=== PATIENT | male | born 1935 | race Caucasian/White ===

== ENCOUNTER 2019-07-14 12:22 | Emergency (ER) | payer MEDICARE, BC ==
--- NOTE | 2019-07-14 13:45 | EDM.PDOC ---
ED HPI GENERAL MEDICAL PROBLEM - General Chief Complaint: Fever Stated Complaint: FEVER,CONGESTION Time Seen by Provider: 07/14/19 13:30 Source of Information: Reports: Patient, Family History Limitations: Reports: No Limitations - History of Present Illness INITIAL COMMENTS - FREE TEXT/NARRATIVE: 83-year-old male with chronic postnasal drip, started ipratropium nasal spray 5 days ago and over the last 2-3 days has had a sore throat. He also ran a low- grade fever so the assisted living facility felt he should be checked. He arrived with his daughter. He has a sore throat when he swallows but no other symptoms, does not feel like he is short of breath, fevers, no cough, no nausea vomiting but his nasal congestion is better. He is afebrile at this time. Onset: Gradual Duration: Day(s): (2 days) Associated Symptoms: Reports: Fever/Chills. Denies: Cough, Headaches, Loss of Appetite, Malaise, Shortness of Breath - Related Data Allergies Allergy/AdvReac Type Severity Reaction Status Date / Time No Known Allergies Allergy Verified 07/14/19 13:07 Home Meds: Home Meds Aspirin [Children's Aspirin] 81 mg PO DAILY 12/12/13 [History] Dutasteride [Avodart] 0.5 mg PO DAILY 12/12/13 [History] Nitroglycerin [Nitrostat] 0.4 mg SL ASDIRECTED PRN 12/12/13 [History] Calcium Carbonate [Calcium] 600 mg PO DAILY 07/14/19 [History] Donepezil [Aricept] 5 mg PO DAILY 07/14/19 [History] FLUoxetine [PROzac] 20 mg PO DAILY 07/14/19 [History] Ipratropium [Atrovent 0.06% Nasal [place]] 2 spray TOP TID 07/14/19 [History] Mirtazapine 15 mg PO DAILY 07/14/19 [History] Omeprazole 20 mg PO DAILY 07/14/19 [History] Past Medical History HEENT History: Reports: Cataract, Other (See Below) Other HEENT History: post nasal drip Cardiovascular History: Reports: Afib, Bypass, CAD, High Cholesterol, [place] Other Respiratory History: RYAN was on c-pap Gastrointestinal History: Reports: Cholelithiasis Genitourinary History: Reports: BPH Neurological History: Reports: Alzheimers Disease Psychiatric History: Reports: Anxiety, PTSD, Other (See Below) Other Psychiatric History: dysthymic disorder Endocrine/Metabolic History: Reports: Hyperparathyroidism Dermatologic History: Reports: Other (See Below) Other Dermatologic History: actinic keratosis - Past Surgical History HEENT Surgical History: Reports: Cataract Surgery Cardiovascular Surgical History: Reports: Coronary Artery Bypass GI Surgical History: Reports: Cholecystectomy Social & Family History - Tobacco Use Smoking Status *Q: Unknown Ever Smoked ED ROS ENT - Review of Systems Review Of Systems: See Below Constitutional: Denies: Fever, Chills HEENT: Reports: Rhinitis, Throat Pain Respiratory: Denies: Shortness of Breath, Cough Cardiovascular: Denies: Chest Pain GI/Abdominal: Denies: Nausea, Vomiting Skin: Denies: Rash Neurological: Denies: Headache ED EXAM, ENT - Physical Exam Exam: See Below Exam Limited By: No Limitations General Appearance: Alert, No Apparent Distress Ears: Normal TMs Mouth/Throat: Normal Inspection, Other (No significant pharyngeal erythema or exudate) Head: Atraumatic Neck: No: Lymphadenopathy (R), Lymphadenopathy (L) Respiratory/Chest: No Respiratory Distress, Lungs Clear Neurological: Alert, Oriented Skin: Warm, Dry Course - Vital Signs Last Recorded V/S: Last Vital Signs Temp 96.3 F 07/14/19 13:05 Pulse 78 07/14/19 13:05 Resp 16 07/14/19 13:05 BP 133/66 07/14/19 13:05 Pulse Ox 96 07/14/19 13:05 - Orders/Labs/Meds Orders: Active Orders 24 hr Category Date Time Status CULTURE STREP A CONFIRMATION [RM] Routine Lab 07/14/19 13:43 Results STREP SCRN A RAPID W CULT CONF [RM] Routine Lab 07/14/19 13:43 Results - Re-Assessments/Exams Free Text/Narrative Re-Assessment/Exam: 07/14/19 13:45 A rapid strep was obtained 07/14/19 14:10 Strep is negative. Patient will consider holding his nasal spray for a couple of days while his cold clears, then reinitiate therapy but I also encouraged to just continue with the spray and if his symptoms resolve then his spray has not contributing to his symptoms. Departure - Departure Time of Disposition: 14:35 Disposition: Home, Self-Care 01 Clinical Impression: Acute viral pharyngitis - Discharge Information Instructions: Pharyngitis Referrals: Jesu Fritz NP [Primary Care Provider] - Forms: ED Department Discharge Care Plan Goals: Rest, fluids, as needed ibuprofen may be beneficial. Consider holding nasal spray until cold clears, and return anytime if worsening or concerns. - My Orders Last 24 Hours: My Active Orders 07/14/19 13:43 CULTURE STREP A CONFIRMATION [RM] Routine STREP SCRN A RAPID W CULT CONF [RM] Routine - Assessment/Plan Last 24 Hours: My Active Orders 07/14/19 13:43 CULTURE STREP A CONFIRMATION [RM] Routine STREP SCRN A RAPID W CULT CONF [RM] Routine
== END 2019-07-14 14:35 | disposition home or self-care (01) ==
LOC: JP.ED 12:22
DX: J02.8 Acute pharyngitis due to other specified organisms (principal); B97.89 Other viral agents as the cause of diseases classified elsewhere; E78.00 Pure hypercholesterolemia, unspecified; I48.91 Unspecified atrial fibrillation; I25.10 Atherosclerotic heart disease of native coronary artery without angina pectoris; I25.2 Old myocardial infarction; F41.9 Anxiety disorder, unspecified; N40.0 Benign prostatic hyperplasia without lower urinary tract symptoms; G30.9 Alzheimer's disease, unspecified; F02.80 Dementia in other diseases classified elsewhere, unspecified severity, without behavioral disturbance, psychotic disturbance, mood disturbance, and anxiety; Z79.82 Long term (current) use of aspirin; Z79.899 Other long term (current) drug therapy
CPT/HCPCS: 87081; 87880-QW; 99283

== ENCOUNTER 2019-07-17 02:12 | Emergency (ER) | payer MEDICARE, BC ==
--- NOTE | 2019-07-17 03:24 | EDM.PDOC ---
ED HPI GENERAL MEDICAL PROBLEM - General Chief Complaint: General Stated Complaint: NOT FEELING WELL Time Seen by Provider: 07/17/19 03:00 Source of Information: Reports: Patient - History of Present Illness INITIAL COMMENTS - FREE TEXT/NARRATIVE: 84 yo presents with concerns of runny nose, cough, watery eyes, sore throat. Symptoms started 2-3 days ago. Started with sore throat, seen in ED for this, strep negative. Since this time symptoms progressed. Now having difficulty sleeping due to cough, prompting presentation to ED tonight. No fever No SOB. No chest pain. No neck stiffness or soreness. - Related Data Allergies Allergy/AdvReac Type Severity Reaction Status Date / Time No Known Allergies Allergy Verified 07/17/19 02:26 Home Meds: Home Meds Aspirin [Children's Aspirin] 81 mg PO DAILY 12/12/13 [History] Dutasteride [Avodart] 0.5 mg PO DAILY 12/12/13 [History] Nitroglycerin [Nitrostat] 0.4 mg SL ASDIRECTED PRN 12/12/13 [History] Calcium Carbonate [Calcium] 600 mg PO DAILY 07/14/19 [History] Donepezil [Aricept] 5 mg PO DAILY 07/14/19 [History] FLUoxetine [PROzac] 20 mg PO DAILY 07/14/19 [History] Ipratropium [Atrovent 0.06% Nasal [place]] 2 spray TOP TID 07/14/19 [History] Mirtazapine 15 mg PO DAILY 07/14/19 [History] Omeprazole 20 mg PO DAILY 07/14/19 [History] Past Medical History HEENT History: Reports: Cataract, Other (See Below) Other HEENT History: post nasal drip Cardiovascular History: Reports: Afib, Bypass, CAD, High Cholesterol, [place] Other Respiratory History: RYAN was on c-pap Gastrointestinal History: Reports: Cholelithiasis Genitourinary History: Reports: BPH Neurological History: Reports: Alzheimers Disease Psychiatric History: Reports: Anxiety, PTSD, Other (See Below) Other Psychiatric History: dysthymic disorder Endocrine/Metabolic History: Reports: Hyperparathyroidism Dermatologic History: Reports: Other (See Below) Other Dermatologic History: actinic keratosis - Past Surgical History HEENT Surgical History: Reports: Cataract Surgery Cardiovascular Surgical History: Reports: Coronary Artery Bypass GI Surgical History: Reports: Cholecystectomy Social & Family History - Tobacco Use Smoking Status *Q: Never Smoker - Recreational Drug Use Recreational Drug Use: No ED ROS GENERAL - Review of Systems Review Of Systems: See Below Constitutional: Reports: No Symptoms HEENT: Reports: Rhinitis, Throat Pain Respiratory: Reports: Cough Cardiovascular: Reports: No Symptoms. Denies: Chest Pain Endocrine: Reports: No Symptoms GI/Abdominal: Reports: No Symptoms : Reports: No Symptoms Musculoskeletal: Reports: No Symptoms Skin: Reports: No Symptoms Neurological: Reports: No Symptoms Psychiatric: Reports: No Symptoms Hematologic/Lymphatic: Reports: No Symptoms Immunologic: Reports: No Symptoms ED EXAM, GENERAL - Physical Exam Exam: See Below Exam Limited By: No Limitations General Appearance: Alert, No Apparent Distress Ears: Normal External Exam Nose: Normal Inspection Throat/Mouth: Inflammation, Other (diffuse oropharyngeal erythema) Head: Atraumatic, Normocephalic Neck: Normal Inspection, Supple, Non-Tender, Full Range of Motion Respiratory/Chest: No Respiratory Distress, Lungs Clear Cardiovascular: Regular Rate, Rhythm GI/Abdominal: Soft, Non-Tender, No Distention Back Exam: Normal Inspection Extremities: Normal Inspection Neurological: Alert, Oriented Psychiatric: Normal Affect, Normal Mood Skin Exam: Warm, Dry Course - Vital Signs Last Recorded V/S: Last Vital Signs Temp 37.1 C 07/17/19 02:35 Pulse 83 07/17/19 02:35 Resp 18 07/17/19 02:35 BP 128/56 L 07/17/19 02:35 Pulse Ox 92 L 07/17/19 02:35 - Re-Assessments/Exams Free Text/Narrative Re-Assessment/Exam: 84 yo presents with constellation of symptoms consistent with viral URI. Exam benign with normal vitals. He is 2-3 days into this. Discussed may take 5-7 days to resolve. Suggested OTC med such as sudafed. Encouraged to follow up with PCP 07/17/19 03:31 Departure - Departure Time of Disposition: 03:22 Disposition: Home, Self-Care 01 Clinical Impression: URI (upper respiratory infection) Qualifiers: URI type: acute nasopharyngitis (common cold) Qualified Code(s): J00 - Acute nasopharyngitis [common cold] - Discharge Information Referrals: PCP,None [Primary Care Provider] - Forms: ED Department Discharge Additional Instructions: You do a trial of sudafed, a cold medicine, which is available over the counter for your symptoms. They are likely caused by a virus, and will need 5-7 days to start getting better. Please make a follow up with your primary doctor.
== END 2019-07-17 03:45 | disposition home or self-care (01) ==
LOC: JP.ED 02:12
DX: J00 Acute nasopharyngitis [common cold] (principal); E78.00 Pure hypercholesterolemia, unspecified; F41.9 Anxiety disorder, unspecified; E21.3 Hyperparathyroidism, unspecified; Z79.82 Long term (current) use of aspirin; Z79.899 Other long term (current) drug therapy
CPT/HCPCS: 99282

== ENCOUNTER 2020-05-15 12:51 | Emergency (ER) | payer BC, MEDICARE ==
--- NOTE | 2020-05-15 14:17 | EDM.PDOC ---
ED HPI GENERAL MEDICAL PROBLEM - General Chief Complaint: General Stated Complaint: HEADACHE, DIZZINESS Time Seen by Provider: 05/15/20 13:45 Source of Information: Reports: Patient History Limitations: Reports: No Limitations - History of Present Illness INITIAL COMMENTS - FREE TEXT/NARRATIVE: 84-year-old male arrives because of concerns of worsening of his malaise, morning headaches and intermittent nausea. He is convinced that there are medication side effects, he says he recently had his Depakote increased and they are going to try to decrease his Prozac. He has been trying to get a hold of his psychiatrist and is unable. No fevers or chills but there has been weight loss. Very nonspecific about his symptoms. Tends to feel worse in the morning, as the day goes on he feels better. Nothing in particular is different today than it has been for the last 1 to 2 weeks. Onset: Unknown/Unsure Duration: Week(s): Associated Symptoms: Reports: Headaches, Loss of Appetite, Malaise, Nausea/Vomiting. Denies: Confusion, Chest Pain, Cough, Diaphoresis, Shortness of Breath - Related Data Allergies Allergy/AdvReac Type Severity Reaction Status Date / Time No Known Allergies Allergy Verified 05/15/20 13:06 Home Meds: Home Meds Aspirin [Children's Aspirin] 81 mg PO DAILY 12/12/13 [History] Nitroglycerin [Nitrostat] 0.4 mg SL ASDIRECTED PRN 12/12/13 [History] Calcium Carbonate [Calcium] 600 mg PO DAILY 07/14/19 [History] FLUoxetine [PROzac] 20 mg PO DAILY 07/14/19 [History] Ipratropium [Atrovent 0.06% Nasal [place]] 2 spray TOP TID 07/14/19 [History] Omeprazole 20 mg PO DAILY 07/14/19 [History] Divalproex Sodium [Depakote ER] 250 mg PO BID 05/15/20 [History] LORazepam [Lorazepam] 0.5 mg PO BID 05/15/20 [History] Levocetirizine Dihydrochloride 5 mg PO BEDTIME 05/15/20 [History] Past Medical History HEENT History: Reports: Cataract, Other (See Below) Other HEENT History: post nasal drip Cardiovascular History: Reports: Afib, Bypass, CAD, High Cholesterol, [place] Other Respiratory History: RYAN was on c-pap Gastrointestinal History: Reports: Cholelithiasis Genitourinary History: Reports: BPH Neurological History: Reports: Alzheimers Disease Psychiatric History: Reports: Anxiety, PTSD, Other (See Below) Other Psychiatric History: dysthymic disorder Endocrine/Metabolic History: Reports: Hyperparathyroidism Dermatologic History: Reports: Other (See Below) Other Dermatologic History: actinic keratosis - Past Surgical History HEENT Surgical History: Reports: Cataract Surgery Cardiovascular Surgical History: Reports: Coronary Artery Bypass GI Surgical History: Reports: Cholecystectomy Social & Family History - Tobacco Use Smoking Status *Q: Never Smoker ED ROS GENERAL - Review of Systems Review Of Systems: See Below Constitutional: Reports: Malaise, Decreased Appetite. Denies: Fever, Chills HEENT: Reports: No Symptoms. Denies: Vision Change Respiratory: Denies: Shortness of Breath Cardiovascular: Denies: Chest Pain GI/Abdominal: Reports: Nausea. Denies: Abdominal Pain Skin: Denies: Rash Neurological: Reports: Headache, Weakness Psychiatric: Reports: Anxiety ED EXAM, GENERAL - Physical Exam Exam: See Below Exam Limited By: No Limitations General Appearance: Alert, No Apparent Distress Eye Exam: Bilateral Eye: Normal Inspection Throat/Mouth: Normal Inspection Head: Atraumatic Neck: Supple, Non-Tender Respiratory/Chest: Lungs Clear Cardiovascular: Regular Rate, Rhythm. No: Tachycardia, Extra Beats Neurological: Alert, Oriented, No Motor/Sensory Deficits Psychiatric: Anxious Skin Exam: Warm, Dry Course - Vital Signs Last Recorded V/S: Last Vital Signs Temp 96.9 F 05/15/20 13:34 Pulse 71 05/15/20 13:34 Resp 20 05/15/20 13:34 BP 130/61 05/15/20 13:34 Pulse Ox 96 05/15/20 13:34 - Orders/Labs/Meds Labs: Laboratory Tests 05/15/20 05/15/20 Range/Units 13:43 13:43 WBC 8.2 (4.5-11.0) K/uL RBC 5.10 (4.30-5.90) M/uL Hgb 14.5 (12.0-15.0) g/dL Hct 44.0 (40.0-54.0) % MCV 86 (80-98) fL MCH 28 (27-31) pg MCHC 33 (32-36) % Plt Count 253 (150-400) K/uL Neut % (Auto) 57 (36-66) % Lymph % (Auto) 31 (24-44) % [place] % (Auto) 10 H (2-6) % Eos % (Auto) 2 (2-4) % Baso % (Auto) 0 (0-1) % Sodium 136 L (140-148) mmol/L Potassium 4.9 (3.6-5.2) mmol/L Chloride 102 (100-108) mmol/L Carbon Dioxide 27 (21-32) mmol/L Anion Gap 11.9 (5.0-14.0) mmol/L BUN 19 H (7-18) mg/dL Creatinine 1.3 (0.8-1.3) mg/dL Est Cr Clr Drug Dosing 43.05 mL/min Estimated GFR (MDRD) 53 L (>60) Glucose 112 H (74-106) mg/dL Calcium 8.7 D (8.5-10.1) mg/dL Total Bilirubin 0.4 (0.2-1.0) mg/dL AST 32 (15-37) U/L ALT 49 (12-78) U/L Alkaline Phosphatase 56 (46-116) U/L Total Protein 7.7 (6.4-8.2) g/dL Albumin 3.2 L (3.4-5.0) g/dL Globulin 4.5 H (2.3-3.5) g/dL Albumin/Globulin Ratio 0.7 L (1.2-2.2) - Re-Assessments/Exams Free Text/Narrative Re-Assessment/Exam: 05/15/20 14:[address] was negative, BMP and CBC were reassuring. While awaiting his lab results, his assisted living facility called and explained that he is not taking his medications appropriately or consistently and is refusing to let them set up his medications. I told the patient I am uncomfortable making any medication recommendations until he is taking his medications appropriately and encouraged him to allow them to set up his medicines. I also discussed this case with his primary provider Jesu Fritz who will recheck with him next week. Departure - Departure Time of Disposition: 14:29 Disposition: Home, Self-Care 01 Clinical Impression: Recurrent headache - Discharge Information Instructions: General Headache Without Cause Referrals: PCP,None [Primary Care Provider] - Forms: ED Department Discharge Care Plan Goals: Continue your medications as prescribed and make adjustments if side effects are persistent. Recheck with Jesu Fritz to discuss medication and possible side effects. Sepsis Event Note (ED) - Evaluation Sepsis Screening Result: No Definite Risk - Focused Exam Vital Signs: Vital Signs Temp Pulse Resp BP Pulse Ox 05/15/20 13:34 96.9 F 71 20 130/61 96
--- NOTE | 2020-05-15 14:26 | CT ---
Head wo Cont CLINICAL HISTORY: Headaches and vomiting COMPARISON: 2013 TECHNIQUE: Transverse scans were obtained from the base of the skull through the vertex without IV contrast on a multislice, multidetector CT scanner. Auto dosage reduction and iterative reconstruction techniques employed. FINDINGS: No focal abnormal parenchymal density is identified. There is no mass effect, hemorrhage, or extraaxial collection. The basal cisterns and sulci over the convexities are prominent. The ventricles are prominent. There is some scattered periventricular lucency IMPRESSION: Moderate age-related atrophy. Chronic ischemic microvascular changes No acute intracranial process
== END 2020-05-15 14:29 | disposition home or self-care (01) ==
LOC: JP.ED 12:51
DX: R51 Headache (principal); I48.91 Unspecified atrial fibrillation; I25.810 Atherosclerosis of coronary artery bypass graft(s) without angina pectoris; E78.00 Pure hypercholesterolemia, unspecified; I25.2 Old myocardial infarction; G30.9 Alzheimer's disease, unspecified; F41.9 Anxiety disorder, unspecified; E21.3 Hyperparathyroidism, unspecified; Z90.89 Acquired absence of other organs; Z79.82 Long term (current) use of aspirin; Z79.899 Other long term (current) drug therapy
CPT/HCPCS: 36415; 70450; 70450-26; 80053; 85025; 99282; 99284-25

== ENCOUNTER 2021-08-07 12:22 | Emergency (ER) | payer MEDICARE ==
--- NOTE | 2021-08-07 13:07 | EDM.PDOC ---
ED HPI GENERAL MEDICAL PROBLEM - General Chief Complaint: Syncope Stated Complaint: SYNCOPE VIA [facility] Time Seen by Provider: 08/07/21 12:45 Source of Information: Reports: Patient, EMS History Limitations: Reports: No Limitations - History of Present Illness INITIAL COMMENTS - FREE TEXT/NARRATIVE: 86-year-old male who has been having trouble with recurring syncopal episodes over the past several months, and persistent dizziness, was sitting in scientologist today when he noticed that the regional extension service specialist was getting "fuzzy". He then got real lightheaded and had a syncopal episode where he laid down on the person next to him. EMS was called, when they arrived he was awake. He had no palpitations or chest pain, no shortness of breath, no headache. This is very similar to his numerous previous dizzy spells. On further questioning they have been working him up for that, including a Holter monitor in the recent past. On arrival he was in normal sinus rhythm with normal blood pressure. He is still complaining of "dizziness". Orthostatic blood pressures lying and sitting were stable. Onset: Sudden (This latest episode came on fairly suddenly) Worsens with: Reports: Other (Standing is worse) Associated Symptoms: Reports: Other (Persistent dizziness, very hard of hearing) - Related Data Allergies Allergy/AdvReac Type Severity Reaction Status Date / Time No Known Allergies Allergy Verified 08/07/21 12:33 Home Meds: Home Meds Aspirin [Children's Aspirin] 81 mg PO DAILY 12/12/13 [History] Nitroglycerin [Nitrostat] 0.4 mg SL ASDIRECTED PRN 12/12/13 [History] Calcium Carbonate [Calcium] 600 mg PO DAILY 07/14/19 [History] FLUoxetine [PROzac] 20 mg PO DAILY 07/14/19 [History] Ipratropium [Atrovent 0.06% Nasal [place]] 2 spray TOP TID 07/14/19 [History] Omeprazole 20 mg PO DAILY 07/14/19 [History] Divalproex Sodium [Depakote ER] 250 mg PO BID 05/15/20 [History] LORazepam [Lorazepam] 0.5 mg PO BID 05/15/20 [History] Levocetirizine Dihydrochloride 5 mg PO BEDTIME 05/15/20 [History] Past Medical History HEENT History: Reports: Cataract, Other (See Below) Other HEENT History: post nasal drip Cardiovascular History: Reports: Afib, Bypass, CAD, High Cholesterol, [place] Other Respiratory History: RYAN was on c-pap Gastrointestinal History: Reports: Cholelithiasis Genitourinary History: Reports: BPH Neurological History: Reports: Alzheimers Disease Psychiatric History: Reports: Anxiety, PTSD, Other (See Below) Other Psychiatric History: dysthymic disorder Endocrine/Metabolic History: Reports: Hyperparathyroidism Dermatologic History: Reports: Other (See Below) Other Dermatologic History: actinic keratosis - Past Surgical History HEENT Surgical History: Reports: Cataract Surgery Cardiovascular Surgical History: Reports: Coronary Artery Bypass GI Surgical History: Reports: Cholecystectomy Social & Family History - Tobacco Use Tobacco Use Status *Q: Never Tobacco User - Caffeine Use Caffeine Use: Reports: None - Recreational Drug Use Recreational Drug Use: No ED ROS GENERAL - Review of Systems Review Of Systems: See Below Constitutional: Denies: Fever, Chills, Malaise HEENT: Denies: Hearing Loss, Vision Change Respiratory: Denies: Shortness of Breath, Cough Cardiovascular: Denies: Chest Pain GI/Abdominal: Denies: Abdominal Pain, Nausea, Vomiting : Reports: No Symptoms Musculoskeletal: Denies: Neck Pain - Physical Exam Exam: See Below Exam Limited By: No Limitations General Appearance: Alert, No Apparent Distress Eye Exam: Bilateral Eye: Normal Inspection (No nystagmus) Ears: Normal TMs Throat/Mouth: Normal Inspection Head Exam: Atraumatic Neck: Supple, Non-Tender Respiratory/Chest: No Respiratory Distress, Lungs Clear Cardiovascular: Regular Rate, Rhythm, Extra Beats (Occasional extra beats) GI/Abdominal: Soft, Non-Tender Neuro Exam (Abbreviated): Alert, Oriented, No Motor/Sensory Deficits Extremities: Normal Inspection Psychiatric: Normal Affect, Normal Mood Skin Exam: Warm, Dry Course - Vital Signs Last Recorded V/S: Last Vital Signs Temp 96.5 F L 08/07/21 12:27 Pulse 62 08/07/21 13:52 Resp 14 08/07/21 13:52 BP 124/62 08/07/21 13:52 Pulse Ox 99 08/07/21 12:37 - Orders/Labs/Meds Labs: Laboratory Tests 08/07/21 08/07/21 Range/Units 13:19 13:19 WBC 9.4 (4.5-11.0) K/uL RBC 4.93 (4.30-5.90) M/uL Hgb 13.9 (12.0-15.0) g/dL Hct 41.5 (40.0-54.0) % MCV 84 (80-98) fL MCH 28 (27-31) pg MCHC 34 (32-36) % Plt Count 279 (150-400) K/uL Neut % (Auto) 69.3 H (36-66) % Lymph % (Auto) 17.6 L (24-44) % [place] % (Auto) 10.7 H (2-6) % Eos % (Auto) 2.0 (2-4) % Baso % (Auto) 0.4 (0-1) % Sodium 135 L (140-148) mmol/L Potassium 5.3 H (3.6-5.2) mmol/L Chloride 104 (100-108) mmol/L Carbon Dioxide 24 (21-32) mmol/L Anion Gap 12.3 (5.0-14.0) mmol/L BUN 17 (7-18) mg/dL Creatinine 1.2 (0.8-1.3) mg/dL Est Cr Clr Drug Dosing 43.54 mL/min Estimated GFR (MDRD) 58 L (>60) Glucose 98 (74-106) mg/dL Calcium 8.5 (8.5-10.1) mg/dL Troponin I < 0.017 (0.000-0.056) ng/mL - Re-Assessments/Exams Free Text/Narrative Re-Assessment/Exam: 08/07/21 13:06 EKG done by EMS was reviewed and shows no acute findings compared to previous EKGs. Other than dizziness patient was asymptomatic in the emergency room. CBC, BMP and troponin were obtained. 08/07/21 14:11 Patient remained stable while in the emergency room, was reassured when labs returned normal. He claims he was on an antibiotic for 2 weeks for his "sinuses" and that seemed to help but I do not see any reason to restart antibiotics and he can talk to his primary provider about that. Departure - Departure Time of Disposition: 14:15 Disposition: Home, Self-Care 01 Clinical Impression: Dizziness Syncope Qualifiers: Syncope type: vasovagal syncope Qualified Code(s): R55 - Syncope and collapse - Discharge Information Instructions: Dizziness, [id number] Referrals: Citlaly Clemons PA-C [Primary Care Provider] - Forms: ED Department Discharge Care Plan Goals: Continue your current medications, recheck with your regular doctor about test results and your heart monitor results as well. Stay hydrated and increase acti vity as tolerated. Sepsis Event Note (ED) - Evaluation Sepsis Screening Result: No Definite Risk - Focused Exam Vital Signs: Vital Signs Temp Pulse Resp BP Pulse Ox 08/07/21 13:52 62 14 124/62 08/07/21 12:37 58 L 27 H 113/48 L 99 08/07/21 12:27 96.5 F L 60 17 111/52 L 98
== END 2021-08-07 14:25 | disposition home or self-care (01) ==
LOC: JP.ED 12:22
DX: R55 Syncope and collapse (principal); R42 Dizziness and giddiness; I48.91 Unspecified atrial fibrillation; I25.810 Atherosclerosis of coronary artery bypass graft(s) without angina pectoris; I25.2 Old myocardial infarction; G30.9 Alzheimer's disease, unspecified; F02.80 Dementia in other diseases classified elsewhere, unspecified severity, without behavioral disturbance, psychotic disturbance, mood disturbance, and anxiety; E21.3 Hyperparathyroidism, unspecified; Z79.82 Long term (current) use of aspirin; Z79.899 Other long term (current) drug therapy
CPT/HCPCS: 36415; 80048; 84484; 85025; 99284

== ENCOUNTER 2022-12-11 14:17 | Emergency (ER) | payer MEDICARE ==
[2022-12-11] MEDS ORDERED: Sodium Chloride 0.9% 10 ML Syringe FLUSH PRN (15:05)
[2022-12-11] MEDS ORDERED: Sodium Chloride 0.9% 50 ML IV ONE (15:10)
[2022-12-11] MEDS ORDERED: Sodium Chloride 0.9% 10 ML Syringe FLUSH ONE (15:10)
[2022-12-11] MEDS ORDERED: Iopamidol 612 MG/ML 100 ML Bottle IV ONE (15:10)
[2022-12-11] MEDS ORDERED: Pantoprazole 40 MG Tab.CR PO ONE (15:11)
[2022-12-11 15:39] LABS: ESTIMATED GFR 54 mL/min (>60)
[2022-12-11] MEDS ORDERED: Amoxicillin/Clavulanate K 875-125 MG Tab PO ONE (17:05)
== END 2022-12-11 17:24 | disposition home or self-care (01) ==
LOC: JP.ED 14:17
DX: K57.92 Diverticulitis of intestine, part unspecified, without perforation or abscess without bleeding (principal); I48.91 Unspecified atrial fibrillation; I25.2 Old myocardial infarction; Z87.891 Personal history of nicotine dependence; Z79.82 Long term (current) use of aspirin
CPT/HCPCS: 36415; 74177; 80053; 81001; 83605; 85025; 99284; A9270; J3490; Q9967; 99283

== ENCOUNTER 2022-12-14 08:11 | Emergency (ER) | payer MEDICARE ==
[2022-12-14] MEDS ORDERED: Sodium Chloride 0.9% 10 ML Syringe FLUSH PRN (09:17)
[2022-12-14] MEDS ORDERED: Lactated Ringers 1,000 ML IV SCH (09:30)
[2022-12-14 10:09] LABS: ESTIMATED GFR 65 mL/min (>60)
[2022-12-14 10:11] LABS: TROPONIN I HIGH SENSITIVITY 10480.1 pg/mL (<=60.3)
[2022-12-14] MEDS ORDERED: Morphine 2 MG/ML SYRINGE IVPUSH ONE (10:21)
[2022-12-14] MEDS ORDERED: Nitroglycerin 0.4 MG Tab.SL SL PRN (10:32)
[2022-12-14] MEDS ORDERED: Aspirin 81 MG Tab.Chew PO ONE (10:32)
[2022-12-14] MEDS ORDERED: Heparin Sodium 5,000 Units/ML Vial IVPUSH ONE (10:32)
[2022-12-14] MEDS ORDERED: Heparin Sodium/D5W 25,000 UNITS/500 ML BAG IV SCH (10:45)
[2022-12-14] MEDS ORDERED: Amoxicillin/Clavulanate K 875-125 MG Tab PO ONE (10:59)
[2022-12-14 11:54] LABS: CORONAVIRUS COVID-19 NAA NEGATIVE (NEGATIVE)
[2022-12-14] MEDS ORDERED: Ondansetron 4 MG/2 ML SDV IVPUSH ONE (15:39)
[2022-12-15] MEDS ORDERED: Levothyroxine 25 MCG Tab PO SCH (07:30)
[2022-12-15] MEDS ORDERED: Non-Formulary Medication 1 Each (Calcium Carbonate [Calcium] 600 MG Tablet) PO SCH (09:00)
[2022-12-15] MEDS ORDERED: Amoxicillin/Clavulanate K 875-125 MG Tab PO SCH (09:00)
[2022-12-15] MEDS ORDERED: Aspirin 81 MG Tab.Chew PO SCH (09:00)
== END 2022-12-14 16:29 ==
LOC: JP.ED 08:11
DX: I21.4 Non-ST elevation (NSTEMI) myocardial infarction (principal); I48.91 Unspecified atrial fibrillation; I25.10 Atherosclerotic heart disease of native coronary artery without angina pectoris; E78.00 Pure hypercholesterolemia, unspecified; I25.2 Old myocardial infarction; E05.90 Thyrotoxicosis, unspecified without thyrotoxic crisis or storm; Z79.82 Long term (current) use of aspirin; Z79.899 Other long term (current) drug therapy; Z95.1 Presence of aortocoronary bypass graft; Z20.822 Contact with and (suspected) exposure to COVID-19
CPT/HCPCS: 0241U; 36415; 71045; 74018; 80053; 83605; 84484; 85025; 85610; 85730; 96361; 96365; 96366; 96375; 99285; A9270; J1644; J2270; J3490; J7120

== ENCOUNTER 2023-05-09 19:56 | Emergency (ER) | payer MEDICARE ==
[2023-05-09] MEDS ORDERED: Sodium Chloride 0.9% 10 ML Syringe FLUSH PRN (20:07)
[2023-05-09 20:33] LABS: HEMATOCRIT 36.8 % (38.4-49.7); HEMOGLOBIN 12.4 g/dL (12.9-16.9); MEAN CORPUSCULAR HEMOGLOBIN 29.2 pg (31.6-35.5); MEAN CORPUSCULAR HGB CONC 33.7 g/dL (31.6-35.5); MEAN CORPUSCULAR VOLUME 86.8 fL (81.4-99.0); RED BLOOD CELL COUNT 4.24 M/uL (4.14-5.76); WHITE BLOOD CELL COUNT,WBC 8.9 K/uL (3.2-11.0)
[2023-05-09 20:57] LABS: BLOOD UREA NITROGEN,BUN 16 mg/dL (7-18); CALCIUM 8.4 mg/dL (8.5-10.1); CARBON DIOXIDE,CO2 25 mmol/L (21-32); CHLORIDE,CL 104 mmol/L (100-108); CREATININE 1.2 mg/dL (0.8-1.3); EST CRCL DRUG DOSING (CG) 41.31 mL/min; ESTIMATED GFR 59 mL/min (>60); GLUCOSE RANDOM 105 mg/dL (74-106); MAGNESIUM 2.1 mg/dL (1.8-2.4); POTASSIUM,K 4.2 mmol/L (3.6-5.2); SODIUM,NA 137 mmol/L (140-148); TROPONIN I HIGH SENSITIVITY 45.6 pg/mL (<=60.3)
[2023-05-09 21:00] LABS: ANION GAP 12.2 mmol/L (5.0-14.0); C-REACTIVE PROTEIN < 0.05 mg/dL (0.0-0.3)
== END 2023-05-09 21:44 | disposition home or self-care (01) ==
LOC: JP.ED 19:56
DX: R00.8 Other abnormalities of heart beat (principal); I48.91 Unspecified atrial fibrillation; I25.10 Atherosclerotic heart disease of native coronary artery without angina pectoris; E78.00 Pure hypercholesterolemia, unspecified; E03.9 Hypothyroidism, unspecified; Z79.82 Long term (current) use of aspirin; Z79.899 Other long term (current) drug therapy; Z95.1 Presence of aortocoronary bypass graft
CPT/HCPCS: 36415; 80048; 83735; 84484; 85027; 86140; 93005; 99285; J3490

== ENCOUNTER 2023-06-27 18:46 | Emergency (ER) | payer MEDICARE ==
[2023-06-27] MEDS ORDERED: Tranexamic Acid 1,000 MG/10 ML Vial TOP ONE (21:02)
[2023-06-27] MEDS ORDERED: Sodium Chloride 0.9% 10 ML Syringe FLUSH PRN (21:49)
[2023-06-27] MEDS ORDERED: Tranexamic Acid 1,000 MG/10 ML Vial IVPUSH ONE (21:51)
[2023-06-27 22:04] LABS: BASOPHILS ABSOLUTE AUTO 0.05 K/uL (0.00-0.10); BASOPHILS PERCENT AUTO 0.5 % (0.1-1.3); EOSINOPHILS ABSOLUTE AUTO 0.13 K/uL (0.00-0.40); EOSINOPHILS PERCENT AUTO 1.2 % (0.0-5.4); HEMATOCRIT 39.2 % (38.4-49.7); IMMATURE GRAN ABSOLUTE AUTO 0.03 K/uL (0.00-0.23); IMMATURE GRAN PERCENT AUTO 0.3 % (0.0-0.7); LYMPHOCYTES ABSOLUTE AUTO 2.82 K/uL (0.8-3.3); MEAN CORPUSCULAR HEMOGLOBIN 28.4 pg (31.6-35.5); MEAN CORPUSCULAR HGB CONC 33.2 g/dL (31.6-35.5); MEAN CORPUSCULAR VOLUME 85.8 fL (81.4-99.0); MONOCYTES ABSOLUTE AUTO 0.98 K/uL (0.20-0.90); MONOCYTES PERCENT AUTO 9.4 % (3.3-12.6); NEUTROPHILS ABSOLUTE AUTO 6.43 K/uL (1.0-7.6); NEUTROPHILS PERCENT AUTO 61.6 % (40.0-78.1); PLATELET COUNT,PLT 210 K/uL (130-375); RED BLOOD CELL COUNT 4.57 M/uL (4.14-5.76); WHITE BLOOD CELL COUNT,WBC 10.4 K/uL (3.2-11.0)
[2023-06-28] MEDS ORDERED: Tranexamic Acid 1,000 MG in Sodium Chloride 0.9% 500 ML IV ONE (03:50)
== END 2023-06-28 08:07 | disposition home or self-care (01) ==
LOC: JP.ED 18:46
DX: K91.840 Postprocedural hemorrhage of a digestive system organ or structure following a digestive system procedure (principal); I25.10 Atherosclerotic heart disease of native coronary artery without angina pectoris; Z79.899 Other long term (current) drug therapy; Z79.82 Long term (current) use of aspirin; Z87.891 Personal history of nicotine dependence
CPT/HCPCS: 36415; 85025; 99283; J3490; J7040

== ENCOUNTER 2023-12-05 18:14 | Observation (INO) | payer MEDICARE ==
[2023-12-05 18:40] LABS: BASOPHILS ABSOLUTE AUTO 0.05 K/uL (0.00-0.10); BASOPHILS PERCENT AUTO 0.5 % (0.1-1.3); HEMATOCRIT 44.5 % (38.4-49.7); HEMOGLOBIN 14.8 g/dL (12.9-16.9); IMMATURE GRAN ABSOLUTE AUTO 0.05 K/uL (0.00-0.23); IMMATURE GRAN PERCENT AUTO 0.5 % (0.0-0.7); LYMPHOCYTES ABSOLUTE AUTO 2.96 K/uL (0.8-3.3); LYMPHOCYTES PERCENT AUTO 32.2 % (11.4-47.7); MEAN CORPUSCULAR HEMOGLOBIN 28.1 pg (31.6-35.5); MEAN CORPUSCULAR HGB CONC 33.3 g/dL (31.6-35.5); MEAN CORPUSCULAR VOLUME 84.4 fL (81.4-99.0); MONOCYTES ABSOLUTE AUTO 0.94 K/uL (0.20-0.90); MONOCYTES PERCENT AUTO 10.2 % (3.3-12.6); NEUTROPHILS PERCENT AUTO 56.6 % (40.0-78.1); PLATELET COUNT,PLT 228 K/uL (130-375); RED BLOOD CELL COUNT 5.27 M/uL (4.14-5.76); WHITE BLOOD CELL COUNT,WBC 9.2 K/uL (3.2-11.0)
[2023-12-05 19:05] LABS: CALCIUM 8.7 mg/dL (8.5-10.1); CREATININE 1.2 mg/dL (0.8-1.3); EST CRCL DRUG DOSING (CG) 41.96 mL/min; POTASSIUM,K 5.2 mmol/L (3.6-5.2); TROPONIN I HIGH SENSITIVITY 13.6 pg/mL (<=60.3)
[2023-12-05 19:06] LABS: ANION GAP 12.2 mmol/L (5.0-14.0)
[2023-12-05] MEDS: Sodium Chloride 0.9% 1,000 ML IV ONE (19:50)
[2023-12-05 20:01] LABS: CORONAVIRUS COVID-19 NAA NEGATIVE (NEGATIVE); INFLUENZA A NAA NEGATIVE (NEGATIVE); INFLUENZA B NAA NEGATIVE (NEGATIVE); RESPIRATORY SYNCYTIAL VIR NAA NEGATIVE (NEGATIVE)
[2023-12-05] MEDS: Meclizine 25 MG Tab PO ONE (22:14)
[2023-12-05] MEDS: Dexamethasone 4 MG/ML SDV IVPUSH ONE (22:42)
[2023-12-06] MEDS ORDERED: Bisacodyl 5 MG Tab PO PRN (01:50)
[2023-12-06] MEDS ORDERED: Albuterol 0.083% 2.5 MG/3 ML Neb Soln NEB PRN (01:50)
[2023-12-06] MEDS ORDERED: oxyCODONE 5 MG Tab PO PRN (01:50)
[2023-12-06] MEDS ORDERED: Naloxone 0.4 MG/ML SDV IVPUSH PRN (01:50)
[2023-12-06] MEDS ORDERED: LORazepam 2 MG/ML SDV IV PRN (01:50)
[2023-12-06] MEDS ORDERED: Nitroglycerin 0.4 MG Tab.SL SL PRN (01:50)
[2023-12-06] MEDS ORDERED: Docusate Sodium 100 MG Cap PO PRN (01:50)
[2023-12-06] MEDS ORDERED: Acetaminophen 325 MG Tab PO PRN (01:50)
[2023-12-06] MEDS ORDERED: Morphine 2 MG/ML SYRINGE IVPUSH PRN (01:50)
[2023-12-06] MEDS: Sodium Chloride 0.9% 1,000 ML IV SCH (02:12)
[2023-12-06] MEDS: Meclizine 25 MG Tab PO PRN (02:17)
[2023-12-06] MEDS ORDERED: Non-Formulary Medication 1 Each (Calcium Carbonate [Calcium] 600 MG Tablet) PO SCH (09:00)
[2023-12-06] MEDS: predniSONE 20 MG Tab PO SCH (09:11)
[2023-12-06] MEDS: Aspirin 81 MG Tab.EC PO SCH (09:11)
[2023-12-06] MEDS: Ipratropium 0.06% Nasal Spray 15 ML Bottle NASBOTH SCH (09:12)
[2023-12-06] MEDS: Sennosides 8.6 MG Tab PO SCH (09:12)
[2023-12-06] MEDS: Calcium Carbonate/Vitamin D3 1500 MG-400 Units Tab PO SCH (09:12)
[2023-12-06] MEDS: Hydrocortisone 2.5% Crm 30 GM Tube TOP SCH (09:14)
[2023-12-06] MEDS: Clopidogrel 75 MG Tab PO SCH (09:21)
[2023-12-06] MEDS: atorvaSTATin 20 MG Tab PO SCH (21:06)
[2023-12-07] MEDS: Ondansetron 4 MG Tab.DIS PO PRN (01:54)
== END 2023-12-07 13:10 | disposition home health service (06) ==
LOC: JP.ED 18:14 → JP.MS 12-06 00:53 → INTOOBSV 12-06 00:53
PROVIDERS: ADMIT Internal Medicine; ATTEND Internal Medicine
DX: H83.03 Labyrinthitis, bilateral (principal); G30.9 Alzheimer's disease, unspecified; F02.80 Dementia in other diseases classified elsewhere, unspecified severity, without behavioral disturbance, psychotic disturbance, mood disturbance, and anxiety; I25.10 Atherosclerotic heart disease of native coronary artery without angina pectoris; E78.00 Pure hypercholesterolemia, unspecified; I25.2 Old myocardial infarction; Z95.5 Presence of coronary angioplasty implant and graft; Z20.822 Contact with and (suspected) exposure to COVID-19; Z79.02 Long term (current) use of antithrombotics/antiplatelets; Z79.82 Long term (current) use of aspirin; Z79.899 Other long term (current) drug therapy
CPT/HCPCS: 0241U; 36415; 80048; 82947; 84484; 85025; 93005; 93010; 95992-GP; 96361; 96374; 97112-GP; 97161-GP; 97530-GP; 99221; 99231; 99238; 99285; 99285-25; A9270-GY; G0378; J1100; J7030; J7512; Q0162

== ENCOUNTER 2023-12-10 19:51 | Emergency (ER) | payer MEDICARE ==
[2023-12-10] MEDS ORDERED: Sodium Chloride 0.9% 10 ML Syringe FLUSH PRN (20:09)
[2023-12-10 20:41] LABS: BASOPHILS ABSOLUTE AUTO 0.06 K/uL (0.00-0.10); BASOPHILS PERCENT AUTO 0.6 % (0.1-1.3); HEMATOCRIT 41.6 % (38.4-49.7); IMMATURE GRAN ABSOLUTE AUTO 0.24 K/uL (0.00-0.23); IMMATURE GRAN PERCENT AUTO 2.2 % (0.0-0.7); LYMPHOCYTES ABSOLUTE AUTO 1.54 K/uL (0.8-3.3); LYMPHOCYTES PERCENT AUTO 14.4 % (11.4-47.7); MEAN CORPUSCULAR HEMOGLOBIN 28.5 pg (31.6-35.5); MEAN CORPUSCULAR HGB CONC 33.7 g/dL (31.6-35.5); MEAN CORPUSCULAR VOLUME 84.7 fL (81.4-99.0); MONOCYTES PERCENT AUTO 8.4 % (3.3-12.6); NEUTROPHILS ABSOLUTE AUTO 7.98 K/uL (1.0-7.6); NEUTROPHILS PERCENT AUTO 74.4 % (40.0-78.1); PLATELET COUNT,PLT 232 K/uL (130-375); RED BLOOD CELL COUNT 4.91 M/uL (4.14-5.76); WHITE BLOOD CELL COUNT,WBC 10.7 K/uL (3.2-11.0)
[2023-12-10 21:01] LABS: INR 1.1; PROTHROMBIN TIME 11.1 sec (9.2-10.6); PTT,PARTIAL THROMBOPLSTIN TIME 20.6 sec (21.8-27.3)
[2023-12-10 21:05] LABS: A/G RATIO 0.7 (1.2-2.2); ALANINE AMINOTRANSFERASE,ALT 22 U/L (12-78); ALBUMIN 2.8 g/dL (3.4-5.0); ALKALINE PHOSPHATASE 52 U/L (46-116); ASPARTATE AMNIOTRANSFERASE,AST 20 U/L (15-37); BILIRUBIN TOTAL 0.5 mg/dL (0.2-1.0); BLOOD UREA NITROGEN,BUN 25 mg/dL (7-18); CALCIUM 7.8 mg/dL (8.5-10.1); CARBON DIOXIDE,CO2 28 mmol/L (21-32); CHLORIDE,CL 99 mmol/L (100-108); CREATININE 1.4 mg/dL (0.8-1.3); ESTIMATED GFR 49 mL/min (>60); GLUCOSE RANDOM 108 mg/dL (74-106); POTASSIUM,K 4.3 mmol/L (3.6-5.2); PROTEIN TOTAL,TP 6.9 g/dL (6.4-8.2); SODIUM,NA 132 mmol/L (140-148); TROPONIN I HIGH SENSITIVITY 13.4 pg/mL (<=60.3)
[2023-12-10 21:13] LABS: ANION GAP 9.3 mmol/L (5.0-14.0)
[2023-12-10] MEDS: Iopamidol 755 Mg/ML 100 ML Bottle IV STA (21:36)
[2023-12-10] MEDS: Sodium Chloride 0.9% 100 ML IV STA (21:36)
== END 2023-12-10 23:38 | disposition home or self-care (01) ==
LOC: JP.ED 19:51
DX: R42 Dizziness and giddiness (principal); R55 Syncope and collapse; I10 Essential (primary) hypertension; I25.2 Old myocardial infarction; I25.10 Atherosclerotic heart disease of native coronary artery without angina pectoris; Z79.82 Long term (current) use of aspirin; Z79.899 Other long term (current) drug therapy; Z90.49 Acquired absence of other specified parts of digestive tract
CPT/HCPCS: 36415; 70450; 70496; 70498; 80053; 84484; 85025; 85610; 85730; 99285; J3490; Q9967

== ENCOUNTER 2024-08-04 12:19 | Emergency (ER) | payer MEDICARE ==
[2024-08-04 12:43] LABS: BASOPHILS ABSOLUTE AUTO 0.05 K/uL (0.00-0.10); BASOPHILS PERCENT AUTO 0.5 % (0.1-1.3); HEMATOCRIT 42.2 % (38.4-49.7); HEMOGLOBIN 14.6 g/dL (12.9-16.9); IMMATURE GRAN ABSOLUTE AUTO 0.07 K/uL (0.00-0.23); IMMATURE GRAN PERCENT AUTO 0.7 % (0.0-0.7); LYMPHOCYTES PERCENT AUTO 32.3 % (11.4-47.7); MEAN CORPUSCULAR HEMOGLOBIN 28.7 pg (31.6-35.5); MEAN CORPUSCULAR HGB CONC 34.6 g/dL (31.6-35.5); MEAN CORPUSCULAR VOLUME 82.9 fL (81.4-99.0); MONOCYTES ABSOLUTE AUTO 0.89 K/uL (0.20-0.90); MONOCYTES PERCENT AUTO 9.3 % (3.3-12.6); NEUTROPHILS PERCENT AUTO 57.2 % (40.0-78.1); PLATELET COUNT,PLT 256 K/uL (130-375); RED BLOOD CELL COUNT 5.09 M/uL (4.14-5.76); WHITE BLOOD CELL COUNT,WBC 9.6 K/uL (3.2-11.0)
[2024-08-04 12:52] LABS: PROTHROMBIN TIME 10.7 sec (9.2-10.6)
[2024-08-04 12:57] LABS: A/G RATIO 0.8 (1.2-2.2); ALANINE AMINOTRANSFERASE,ALT 31 U/L (12-78); ALBUMIN 3.4 g/dL (3.4-5.0); ALKALINE PHOSPHATASE 69 U/L (46-116); ASPARTATE AMNIOTRANSFERASE,AST 28 U/L (15-37); BILIRUBIN TOTAL 0.5 mg/dL (0.2-1.0); BLOOD UREA NITROGEN,BUN 16 mg/dL (7-18); CALCIUM 9.5 mg/dL (8.5-10.1); CARBON DIOXIDE,CO2 27 mmol/L (21-32); CHLORIDE,CL 103 mmol/L (100-108); CREATININE 1.7 mg/dL (0.8-1.3); EST CRCL DRUG DOSING (CG) 29.06 mL/min; ESTIMATED GFR 38 mL/min (>60); GLUCOSE RANDOM 112 mg/dL (74-106); POTASSIUM,K 4.5 mmol/L (3.6-5.2); PROTEIN TOTAL,TP 7.9 g/dL (6.4-8.2); SODIUM,NA 139 mmol/L (140-148); TROPONIN I HIGH SENSITIVITY 7.6 pg/mL (<=60.3)
[2024-08-04 13:00] LABS: ANION GAP 13.5 mmol/L (5.0-14.0)
[2024-08-04 14:30] LABS: APPEARANCE,URINE CLEAR (CLEAR); BILIRUBIN,URINE NEGATIVE (NEGATIVE); COLOR,URINE YELLOW (YELLOW); GLUCOSE,URINE NEGATIVE (NEGATIVE); KETONES,URINE NEGATIVE (NEGATIVE); LEUKOCYTE ESTERASE,URINE NEGATIVE (NEGATIVE); NITRITE,URINE NEGATIVE (NEGATIVE); OCCULT BLOOD,URINE NEGATIVE (NEGATIVE); PROTEIN,URINE TRACE mg/dL (NEGATIVE); UROBILINOGEN,URINE 0.2 EU/dL (0.2-1.0)
[2024-08-04 14:40] LABS: AMORPHOUS SEDIMENT,URINE FEW; BACTERIA,URINE NOT SEEN; EPITHELIAL CELLS,URINE NOT SEEN; MUCUS,URINE OCCASIONAL; RBC,URINE 0-5 (0-5); WBC,URINE 0-5 (0-5)
== END 2024-08-04 16:19 | disposition home or self-care (01) ==
LOC: JP.ED 12:19
DX: R55 Syncope and collapse (principal); N28.9 Disorder of kidney and ureter, unspecified; I10 Essential (primary) hypertension; I25.10 Atherosclerotic heart disease of native coronary artery without angina pectoris; Z90.49 Acquired absence of other specified parts of digestive tract; Z79.82 Long term (current) use of aspirin; Z79.899 Other long term (current) drug therapy
CPT/HCPCS: 36415; 70450; 80053; 80307; 81001; 83605; 84484; 85025; 85610; 93005; 99285

== ENCOUNTER 2025-03-17 15:54 | Emergency (ER) | payer MEDICARE, BC | END 2025-03-17 17:57 | disposition home or self-care (01) | LOC: JP.ED 15:54 | DX: S00.83XA Contusion of other part of head, initial encounter (principal); I95.1 Orthostatic hypotension; H61.21 Impacted cerumen, right ear; I25.10 Atherosclerotic heart disease of native coronary artery without angina pectoris; I25.2 Old myocardial infarction; I10 Essential (primary) hypertension; Z90.49 Acquired absence of other specified parts of digestive tract; Z79.82 Long term (current) use of aspirin; Z79.899 Other long term (current) drug therapy; W01.0XXA Fall on same level from slipping, tripping and stumbling without subsequent striking against object, initial encounter | CPT/HCPCS: 70450; 70486; 72125; 99284-25 ==

== ENCOUNTER 2025-08-20 21:48 | Emergency (ER) | payer MEDICARE, BC ==
[2025-08-20 22:24] LABS: PLATELET COUNT,PLT 228.0 K/uL (130-375); RED BLOOD CELL COUNT 4.76 M/uL (4.14-5.76); WHITE BLOOD CELL COUNT,WBC 12.4 K/uL (3.2-11.0)
[2025-08-20 22:39] LABS: BLOOD UREA NITROGEN,BUN 16.0 mg/dL (7-18); CARBON DIOXIDE,CO2 28.0 mmol/L (21-32); CHLORIDE,CL 100.0 mmol/L (100-108); CREATININE 1.2 mg/dL (0.8-1.3); EST CRCL DRUG DOSING (CG) 40.38 mL/min; ESTIMATED GFR 58.0 mL/min (>60); GLUCOSE RANDOM 119.0 mg/dL (74-106); POTASSIUM,K 3.6 mmol/L (3.6-5.2); SODIUM,NA 134.0 mmol/L (140-148)
== END 2025-08-20 23:51 | disposition home health service (06) ==
LOC: JP.ED 21:48
DX: R42 Dizziness and giddiness (principal); R26.81 Unsteadiness on feet; I48.91 Unspecified atrial fibrillation; I25.10 Atherosclerotic heart disease of native coronary artery without angina pectoris; E78.00 Pure hypercholesterolemia, unspecified; I10 Essential (primary) hypertension; I25.2 Old myocardial infarction; Z95.5 Presence of coronary angioplasty implant and graft; Z95.1 Presence of aortocoronary bypass graft; Z90.49 Acquired absence of other specified parts of digestive tract; Z88.8 Allergy status to other drugs, medicaments and biological substances; Z79.82 Long term (current) use of aspirin; Z79.899 Other long term (current) drug therapy; W18.39XA Other fall on same level, initial encounter
CPT/HCPCS: 36415; 70450; 80048; 85027; 99284; 99285

== ENCOUNTER 2025-09-06 15:08 | Emergency (ER) | payer MEDICARE, BC ==
[2025-09-06 16:27] LABS: BASOPHILS ABSOLUTE AUTO 0.04 K/uL (0.00-0.10); BASOPHILS PERCENT AUTO 0.6 % (0.1-1.3); EOSINOPHILS ABSOLUTE AUTO 0.11 K/uL (0.00-0.40); EOSINOPHILS PERCENT AUTO 1.7 % (0.0-5.4); IMMATURE GRAN ABSOLUTE AUTO 0.05 K/uL (0.00-0.23); IMMATURE GRAN PERCENT AUTO 0.8 % (0.0-0.7); LYMPHOCYTES ABSOLUTE AUTO 2.24 K/uL (0.8-3.3); LYMPHOCYTES PERCENT AUTO 34.6 % (11.4-47.7); MONOCYTES ABSOLUTE AUTO 1.06 K/uL (0.20-0.90); MONOCYTES PERCENT AUTO 16.4 % (3.3-12.6); NEUTROPHILS ABSOLUTE AUTO 2.98 K/uL (1.0-7.6); NEUTROPHILS PERCENT AUTO 45.9 % (40.0-78.1); PLATELET COUNT,PLT 222 K/uL (130-375); RED BLOOD CELL COUNT 4.97 M/uL (4.14-5.76); WHITE BLOOD CELL COUNT,WBC 6.5 K/uL (3.2-11.0)
[2025-09-06 16:51] LABS: A/G RATIO 0.8 (1.2-2.2); ALANINE AMINOTRANSFERASE,ALT 18 U/L (12-78); ASPARTATE AMNIOTRANSFERASE,AST 51 U/L (15-37); BILIRUBIN TOTAL 0.8 mg/dL (0.2-1.0); BLOOD UREA NITROGEN,BUN 14 mg/dL (7-18); CARBON DIOXIDE,CO2 27 mmol/L (21-32); CHLORIDE,CL 96 mmol/L (100-108); CREATININE 1.1 mg/dL (0.8-1.3); EST CRCL DRUG DOSING (CG) 45.53 mL/min; ESTIMATED GFR 64 mL/min (>60); GLUCOSE RANDOM 93 mg/dL (74-106); POTASSIUM,K 4.1 mmol/L (3.6-5.2); PROTEIN TOTAL,TP 7.6 g/dL (6.4-8.2); SODIUM,NA 133 mmol/L (140-148); TROPONIN I HIGH SENSITIVITY 21.6 pg/mL (<=60.3)
[2025-09-06] MEDS: Furosemide 40 MG/4 ML VIAL IVPUSH ONE (17:38)
== END 2025-09-06 19:27 ==
LOC: JP.ED 15:08
DX: I11.0 Hypertensive heart disease with heart failure (principal); I50.9 Heart failure, unspecified; I25.10 Atherosclerotic heart disease of native coronary artery without angina pectoris; I25.2 Old myocardial infarction; E78.00 Pure hypercholesterolemia, unspecified; Z90.49 Acquired absence of other specified parts of digestive tract; Z95.5 Presence of coronary angioplasty implant and graft; Z88.8 Allergy status to other drugs, medicaments and biological substances; Z79.82 Long term (current) use of aspirin; Z79.899 Other long term (current) drug therapy
CPT/HCPCS: 36415; 71045; 80053; 83605; 83880; 84484; 85025; 93005; 96374; 99285; J1938